=== PATIENT | female | born 1975 | race African-American/Black ===

== ENCOUNTER 2020-08-08 04:06 | Emergency (ER) | payer MEDICAID ==
[~2020-08-08] VITALS: Ht 175.3 cm; Wt 92.0 kg
[~2020-08-08 04:06] MED LIST: ALBUTEROL
[2020-08-08 04:09] VITALS: BP 139/77
== END 2020-08-08 06:58 | disposition home or self-care (01) ==
LOC: ER 04:06
DX: Z53.21 Procedure and treatment not carried out due to patient leaving prior to being seen by health care provider (principal)
CPT/HCPCS: 93970

== ENCOUNTER 2023-08-29 11:21 | Emergency (ER) | payer MEDICAID ==
[~2023-08-29] VITALS: Ht 175.3 cm; Wt 81.0 kg
[2023-08-29 11:29] VITALS: BP 148/81; PULSE 69; RESP 20; O2SAT 96
== END 2023-08-29 13:52 | disposition home or self-care (01) ==
LOC: ER 11:21
DX: Z11.52 Encounter for screening for COVID-19 (principal); M79.10 Myalgia, unspecified site; J02.9 Acute pharyngitis, unspecified; Z20.822 Contact with and (suspected) exposure to COVID-19
CPT/HCPCS: 99283; 87426; C9803